=== PATIENT | female | born 1980 | race Caucasian/White ===

== ENCOUNTER → 2020-01-11 12:48 | Outpatient (CLI) | payer BC, SELFPAY ==
--- NOTE | 2020-01-11 12:54 | XR_ITS ---
PROCEDURE: XR ANKLE WT BEARING LT MIN 3V CLINICAL INDICATION: FRACTURE F/U Follow-up fracture COMPARISON: XR ANKLE LT MIN 3V from 12/11/2019 FINDINGS: There is a nondisplaced transverse fracture involving the lateral malleolus 11 mm proximal to the tip. Fracture line more prominent than when compared to 12/11/2019 which could be related to hyperemia seen with acute fractures. Fracture is nondisplaced. Ankle mortise is well preserved. IMPRESSION: Good alignment nondisplaced distal fibular fracture as described above Dictated by: Rajeev Oshea MD 01/11/2020 13:31 Electronically signed by Rajeev Oshea MD in [place] 01/11/2020 13:31
== END ==
PROVIDERS: PCP Physician Assistant; Visit Provider Podiatrist
DX: S82.892D Other fracture of left lower leg, subsequent encounter for closed fracture with routine healing (principal)
CPT/HCPCS: 73610

== ENCOUNTER → 2020-02-03 12:53 | Outpatient (CLI) | payer BC, SELFPAY ==
--- NOTE | 2020-02-03 12:57 | XR_ITS ---
PROCEDURE: XR ANKLE WT BEARING LT MIN 3V CLINICAL INDICATION: Fracture follow up COMPARISON: XR ANKLE LT MIN 3V from 12/11/2019 XR ANKLE WT BEARING LT MIN 3V from 01/11/2020 FINDINGS: The transverse fracture at the distal aspect of the lateral malleolus is barely visible. The ankle mortise is well preserved. IMPRESSION: Healing distal fibular fracture with good alignment Dictated by: Rajeev Oshea MD 02/03/2020 14:06 Electronically signed by Rajeev Oshea MD in [place] 02/03/2020 14:06
--- NOTE | 2020-02-03 14:37 | XR_ITS ---
PROCEDURE: XR FOOT WT BEARING RT 3V CLINICAL INDICATION: pain COMPARISON: No exams were available for comparison FINDINGS: No fracture. There is mild prominence of the space between the base of the 1st and 2nd metatarsals. There is however good alignment the 1st and 2nd metatarsal tarsal junctions. This is of questionable clinical significance. There is a prominent os trigonum. The joint spaces are well-preserved. No significant degenerative/arthritic changes. No erosive changes evident. Other findings:None. IMPRESSION: 1. Mild prominence of the 1st intermetatarsal space of questionable clinical significance. Please correlate with physical exam. 2. Prominent os trigonum Dictated by: Rajeev Oshea MD 02/03/2020 16:09 Electronically signed by Rajeev Oshea MD in [place] 02/03/2020 16:09
--- NOTE | 2020-02-03 14:37 | XR_ITS ---
PROCEDURE: XR ANKLE WT BEARING RT MIN 3V CLINICAL INDICATION: pain COMPARISON: XR ANKLE LT MIN 3V from 12/11/2019 XR ANKLE WT BEARING LT MIN 3V from 01/11/2020 XR FOOT WT BEARING RT 3V from 02/03/2020 FINDINGS: No fracture, dislocation, lytic change, or blastic change evident. No significant degenerative change. There is a prominent os trigonum IMPRESSION: Prominent os trigonum otherwise negative right ankle Dictated by: Rajeev Oshea MD 02/03/2020 16:08 Electronically signed by Rajeev Oshea MD in [place] 02/03/2020 16:08
== END ==
PROVIDERS: PCP Physician Assistant; Visit Provider Podiatrist
DX: T14.8XXA Other injury of unspecified body region, initial encounter (principal); M79.672 Pain in left foot; M25.572 Pain in left ankle and joints of left foot
CPT/HCPCS: 73610; 73630